=== PATIENT | female | born 1975 | race Caucasian/White ===

== ENCOUNTER 2018-02-08 08:43 | Day surgery (SDC) | payer MEDICARE, MEDICAID ==
[~2018-02-08] VITALS: Ht 170.2 cm; Wt 88.1 kg
[~2018-02-08 08:43] MED LIST: BACITRACIN 50,000 UNIT ONE; BUPIVACAINE 0.25% ONE; EPINEPHRINE 1 MG/ML, 1ML ONE; HYDR-3241 PO; HYDR-3276 PO; LEVO125T5 PO; LEVO175T5 PO; OMEP40CA3 PO; PROM25TA10 PO
[2018-02-08] MEDS ORDERED: LACTATED RINGERS 1,000 ML IV SCH (10:01)
[2018-02-08 10:02] VITALS: BP 132/91
[2018-02-08] MEDS ORDERED: ACETAMINOPHEN 500 MG TABLET ONE (10:44)
[2018-02-08] MEDS ORDERED: GABAPENTIN 300 MG CAPSULE ONE (10:44)
[2018-02-08] MEDS ORDERED: GABAPENTIN 300 MG CAPSULE PO ONE (11:00)
[2018-02-08] MEDS ORDERED: ACETAMINOPHEN 500 MG TABLET PO ONE (11:00)
[2018-02-08] MEDS ORDERED: FENTANYL PF 100 MCG/2ML ONE ×2 (11:47→13:00)
[2018-02-08] MEDS ORDERED: MIDAZOLAM 1 MG/ML, 2ML ONE (11:47)
[2018-02-08] MEDS ORDERED: KETOROLAC 30 MG/1 ML ONE (11:58)
[2018-02-08] MEDS ORDERED: DEXAMETHASONE 4 MG/ML, 1ML ONE (12:17)
[2018-02-08] MEDS ORDERED: CEFAZOLIN 1,000 MG ONE (12:17)
[2018-02-08] MEDS ORDERED: PROPOFOL 10 MG/ML, 20ML ONE (12:17)
[2018-02-08] MEDS ORDERED: ONDANSETRON 2MG/ML, 2ML ONE (12:17)
[2018-02-08] MEDS ORDERED: FUROSEMIDE 20 MG/2 ML ONE (12:23)
[2018-02-08] MEDS ORDERED: OXYcodone 5 MG/5 ML ORAL.SOL UDC ONE (13:00)
[2018-02-08] MEDS ORDERED: MEPERIDINE/PF 50 MG/ML ONE (13:00)
[2018-02-08] MEDS: FENTANYL PF 100 MCG/2ML IV PRN ×2 (13:14→13:27)
[2018-02-08] MEDS ORDERED: hydrALAzine 20 MG/ML, 1ML IV PRN (13:30)
[2018-02-08] MEDS ORDERED: LABETALOL 5MG/ML, 20ML IV PRN (13:30)
[2018-02-08] MEDS ORDERED: HYDROmorphone 1 MG/ML, 1ML IV PRN (13:30)
[2018-02-08] MEDS ORDERED: ONDANSETRON 2MG/ML, 2ML IV PRN (13:30)
[2018-02-08] MEDS ORDERED: OXYcodone 5 MG/5 ML ORAL.SOL UDC PO PRN (13:30)
[2018-02-08] MEDS ORDERED: NEOMY/POLYMYXIN B GU IRR. 1 ML IRRIG ONE (13:56)
[2018-02-08] MEDS ORDERED: MEPERIDINE/PF 25MG/0.5ML IVPush PRN (14:00)
== END 2018-02-08 16:15 | disposition home or self-care (01) ==
LOC: OUT 08:43
PROVIDERS: ATTEND Obstetrics & Gynecology Female Pelvic Medicine and Reconstructive Surgery
DX: N81.89 Other female genital prolapse (principal); N39.3 Stress incontinence (female) (male); N81.5 Vaginal enterocele; N32.81 Overactive bladder; N94.10 Unspecified dyspareunia; G43.909 Migraine, unspecified, not intractable, without status migrainosus; E03.9 Hypothyroidism, unspecified; K21.9 Gastro-esophageal reflux disease without esophagitis; Z98.890 Other specified postprocedural states; Z90.710 Acquired absence of both cervix and uterus; Z90.722 Acquired absence of ovaries, bilateral; Z87.891 Personal history of nicotine dependence; Z88.6 Allergy status to analgesic agent; J44.9 Chronic obstructive pulmonary disease, unspecified; Z72.0 Tobacco use; Z88.5 Allergy status to narcotic agent
CPT/HCPCS: 57265; 57282; 57288; C1771; J0171; J0690; J1100; J1885; J1940; J2175; J2250; J2405; J2704; J3010; J3490; J7120

== ENCOUNTER 2018-11-04 10:20 | Outpatient (CLI) | payer MEDICARE, MEDICAID ==
[~2018-11-04 10:20] MED LIST changes: -BACITRACIN 50,000 UNIT ONE; -BUPIVACAINE 0.25% ONE; -EPINEPHRINE 1 MG/ML, 1ML ONE
[2018-11-04] MEDS ORDERED: ESOM20CA PO (13:25)
== END 2018-11-04 23:59 | disposition home or self-care (01) ==
LOC: STAR 10:20
PROVIDERS: ATTEND Obstetrics & Gynecology Female Pelvic Medicine and Reconstructive Surgery
DX: Z02.9 Encounter for administrative examinations, unspecified (principal)

== ENCOUNTER 2018-11-08 07:32 | Day surgery (SDC) | payer MEDICARE, MEDICAID ==
[~2018-11-08] VITALS: Ht 170.2 cm; Wt 80.2 kg
[~2018-11-08 07:32] MED LIST changes: +BUPIVACAINE/PF 0.25% ONE; +EPINEPHRINE 1 MG/ML, 1ML ONE; +ESOM20CA PO; +NEOMY/POLYMYXIN B GU IRR. 1 ML ONE
[2018-11-08 07:55] VITALS: BP 130/85
[2018-11-08] MEDS ORDERED: LACTATED RINGERS 1,000 ML IV SCH (07:57)
[2018-11-08] MEDS ORDERED: ACETAMINOPHEN 500 MG TABLET PO STA (07:58)
[2018-11-08] MEDS ORDERED: DIAZEPAM 5 MG TABLET PO STA (07:58)
[2018-11-08] MEDS ORDERED: GABAPENTIN 300 MG CAPSULE PO STA (07:58)
[2018-11-08] MEDS ORDERED: SCOPOLAMINE PATCH, 1.5MG PATCH.TD72 TD STA (07:58)
[2018-11-08] MEDS ORDERED: FENTANYL PF 250 MCG/5ML ONE (09:46)
[2018-11-08] MEDS ORDERED: MIDAZOLAM 1 MG/ML, 2ML ONE (09:46)
[2018-11-08] MEDS ORDERED: ONDANSETRON 2MG/ML, 2ML ONE ×2 (09:47)
[2018-11-08] MEDS ORDERED: SUCCINYLCHOLINE 20 MG/ML, 10ML ONE (09:47)
[2018-11-08] MEDS ORDERED: DEXAMETHASONE 4 MG/ML, 1ML ONE ×2 (09:47)
[2018-11-08] MEDS ORDERED: PROPOFOL 10 MG/ML, 20ML ONE (09:47)
[2018-11-08] MEDS ORDERED: ROCURONIUM 10MG/ML,5ML ONE (09:47)
[2018-11-08] MEDS ORDERED: CEFAZOLIN 1,000 MG ONE (09:49)
[2018-11-08] MEDS ORDERED: FENTANYL PF 100 MCG/2ML ONE (11:12)
[2018-11-08] MEDS ORDERED: OXYcodone 5 MG/5 ML ORAL.SOL UDC ONE (11:12)
[2018-11-08] MEDS: FENTANYL PF 100 MCG/2ML IV PRN ×2 (11:15→11:20)
[2018-11-08] MEDS ORDERED: FENTANYL PF 100 MCG/2ML IV PRN (11:30)
[2018-11-08] MEDS ORDERED: DIAZEPAM 5 MG/ML, 2ML IVPush PRN (11:30)
[2018-11-08] MEDS ORDERED: MIDAZOLAM 1 MG/ML, 2ML IV PRN ×2 (11:30)
[2018-11-08] MEDS ORDERED: OXYcodone 5 MG/5 ML ORAL.SOL UDC PO PRN ×2 (11:30)
[2018-11-08] MEDS ORDERED: LABETALOL 5MG/ML, 20ML IV PRN (11:30)
[2018-11-08] MEDS ORDERED: MORPHINE SULFATE 4 MG/ML, 1ML IVPush PRN (11:30)
[2018-11-08] MEDS ORDERED: MEPERIDINE/PF 25MG/0.5ML IVPush PRN ×2 (11:30)
[2018-11-08] MEDS ORDERED: HALOPERIDOL 5 MG/ML IV PRN (11:30)
[2018-11-08] MEDS ORDERED: hydrALAzine 20 MG/ML, 1ML IV PRN (11:30)
[2018-11-08] MEDS ORDERED: EPHEDRINE 50 MG/ML, 1ML IVPush PRN (11:30)
[2018-11-08] MEDS ORDERED: ALBUTEROL SULFATE 2.5 MG/3 ML NPPB PRN (11:30)
[2018-11-08] MEDS ORDERED: PROMETHAZINE 25 MG/ML, 1ML IV PRN ×2 (11:30)
[2018-11-08] MEDS ORDERED: ONDANSETRON 2MG/ML, 2ML IV PRN (11:30)
[2018-11-08] MEDS ORDERED: PROMETHAZINE 12.5 MG SUPP PR PRN (11:30)
[2018-11-08] MEDS ORDERED: ONDANSETRON ODT 8 MG PO PRN (11:30)
[2018-11-08] MEDS ORDERED: HYDROmorphone 2 MG/ML, 1ML IVPush PRN ×2 (11:30)
== END 2018-11-08 13:55 | disposition home or self-care (01) ==
LOC: OUT 07:32
PROVIDERS: ATTEND Obstetrics & Gynecology Female Pelvic Medicine and Reconstructive Surgery
DX: N81.89 Other female genital prolapse (principal); N39.46 Mixed incontinence; N94.10 Unspecified dyspareunia; N32.81 Overactive bladder; G43.909 Migraine, unspecified, not intractable, without status migrainosus; E03.9 Hypothyroidism, unspecified; K21.9 Gastro-esophageal reflux disease without esophagitis; J44.9 Chronic obstructive pulmonary disease, unspecified; Z98.890 Other specified postprocedural states; Z90.710 Acquired absence of both cervix and uterus; Z90.721 Acquired absence of ovaries, unilateral; Z87.891 Personal history of nicotine dependence; Z88.6 Allergy status to analgesic agent
CPT/HCPCS: 57265; 57282; 57288; C1781; J0171; J0330; J0690; J1100; J2250; J2405; J2704; J3010; J3490; J7120